=== PATIENT | male | born 1945 | race Hispanic/Latino ===

== ENCOUNTER 2023-10-12 06:53 | Day surgery (SDC) | payer OTHER ==
[2023-10-07 09:49] LABS: BASOPHILS # (AUTO) 0.04 K/uL (0.00-0.20); BASOPHILS % (AUTO) 0.5 % (0.0-5.0); EOSINOPHILS % (AUTO) 1.1 % (0.0-8.0); HEMATOCRIT 38.7 % (42-54); IMMATURE GRANULOCYTE ABSOLUTE 0.04 K/uL (0-1); LYMPHOCYTES # (AUTO) 2.8 K/uL (1.0-4.8); LYMPHOCYTES % (AUTO) 31.3 % (21.0-51.0); MEAN CORPUSCULAR HGB CONC 31.8 g/dL (32.0-36.0); MEAN CORPUSCULAR VOLUME 91.3 fL (79-99); MONOCYTES # (AUTO) 0.8 K/uL (0.1-1.0); MONOCYTES % (AUTO) 9.3 % (3.0-13.0); NEUTROPHILS # (AUTO) 5.1 K/uL (1.8-7.7); NEUTROPHILS % (AUTO) 57.3 % (40.0-77.0); PLATELET COUNT (AUTO) 216 K/uL (130-400); RED BLOOD CELL COUNT(AUTO) 4.24 MIL/uL (4.50-6.20); RED CELL DISTRIBUTION WIDTH 13.2 % (11.0-15.5); WHITE BLOOD COUNT (AUTO) 8.9 K/uL (4.8-10.8)
[2023-10-07 09:56] LABS: CREATININE 1.5 mg/dL (0.5-1.5); POTASSIUM 5.3 mmol/L (3.5-5.1)
[2023-10-07 09:57] LABS: INR <= 0.93 (0.85-1.15); PROTHROMBIN TIME 10.8 SEC (9.6-11.6)
[2023-10-07 09:58] LABS: PARTIAL THROMBOPLASTIN TIME 28.2 SEC (26.3-35.5)
[2023-10-07 10:04] VITALS: BP 153/70; PULSE 54; RESP 16
[~2023-10-12] VITALS: Ht 165.1 cm; Wt 76.4 kg
[2023-10-12] VITALS (16 sets, daily range): BP systolic 106–169; BP diastolic 57–90; PULSE 60–86; RESP 11–16
[~2023-10-12 06:53] MED LIST: GLIM1TAB18 PO; MEMA5TAB42 PO; METF-444 PO; METO-391 PO; OMEP20CA12 PO; RAMI10CA69 PO; RIVA2.5T PO; SITA100T12 PO
[2023-10-12] MEDS: 0.9%NACL 1000ML 1,000 ML IV ONE (07:47)
[2023-10-12] MEDS ORDERED: ONDANSETRON 4MG INJ ONE (08:21)
[2023-10-12] MEDS ORDERED: SUCCINYLCHOLINE CHLORIDE 20 MG/ML 10 ML VIAL ONE (08:21)
[2023-10-12] MEDS ORDERED: DEXAMETHASONE SOD PHOSPHATE 10MG/ML 1ML VIAL ONE (08:21)
[2023-10-12] MEDS ORDERED: LIDOCAINE PF 100MG/5ML (2%) SYRINGE 5ML ONE (08:21)
[2023-10-12] MEDS ORDERED: GLYCOPYRROLATE 0.2 MG/ML 5 ML VIAL ONE (08:21)
[2023-10-12] MEDS ORDERED: PROPOFOL 10 MG/ML 20ML VIAL IV ONE (08:22)
[2023-10-12] MEDS ORDERED: MIDAZOLAM HCL 1 MG/ML 2ML VIAL ONE (08:22)
[2023-10-12] MEDS ORDERED: NEOSTIGMINE METHYLSULFATE 1MG/ML IV ONE (08:22)
[2023-10-12] MEDS ORDERED: FENTANYL CITRATE PF 50 MCG/1 ML 2ML VIAL ONE (08:22)
[2023-10-12] MEDS ORDERED: ROCURONIUM BROMIDE 10MG/1ML 5ML VL ONE (08:22)
[2023-10-12] MEDS ORDERED: BUPIVACAINE/PF 0.25% 30ML VIAL IJ ONE (09:06)
[2023-10-12] MEDS ORDERED: CEFAZOLIN SODIUM 1 GM VIAL ONE (09:44)
[2023-10-12] MEDS: CEFAZOLIN SODIUM 2 GM VIAL IVPB ONE (09:44)
[2023-10-12] MEDS: BUPIVACAINE/PF 0.25% 30ML VIAL IJ ONE (09:48)
[2023-10-12] MEDS: HEPARIN 2000 UNIT/2 ML IV ONE (09:48)
[2023-10-12] MEDS ORDERED: DOCU-116 PO (10:08)
[2023-10-12] MEDS ORDERED: GABA-529 PO (10:08)
[2023-10-12] MEDS ORDERED: TRAM50TA4 PO (10:08)
== END 2023-10-12 12:07 | disposition home or self-care (01) ==
LOC: DAH 06:53
PROVIDERS: ATTEND Surgery
DX: C44.42 Squamous cell carcinoma of skin of scalp and neck (principal); E11.9 Type 2 diabetes mellitus without complications; I45.10 Unspecified right bundle-branch block; I25.10 Atherosclerotic heart disease of native coronary artery without angina pectoris; E78.00 Pure hypercholesterolemia, unspecified; Z95.1 Presence of aortocoronary bypass graft; Z79.899 Other long term (current) drug therapy; Z79.01 Long term (current) use of anticoagulants; Z98.890 Other specified postprocedural states; Z79.84 Long term (current) use of oral hypoglycemic drugs
CPT/HCPCS: 93005; 80048; 85025; 85610; 85730; 36415; 36561; 82948 ×2; 77001; 71045; A6260; A4663; A4606; C1788; J3010; J0690 ×2; J1100; J0330; J7030; J0665 ×2; J3490 ×2; J2001; J2250; J2704; J2405; J2710; J1644 ×2; A4215; A4223; A4222; A4221; A4600; 76000; G0168